=== PATIENT | male | born 1990 | race American Indian/Alaskan Native ===

== ENCOUNTER 2024-12-25 18:02 | Emergency (ER) | payer MEDICAID, SELFPAY ==
[2024-12-25 18:03] VITALS: BMI 42.2
[2024-12-25 19:17] VITALS: BP 152/84; PULSE 74; RESP 18; TEMP 37.1; O2SAT 98
--- NOTE | 2024-12-25 19:22 | XR_ITS ---
Examination: PA lateral chest 2 views TECHNIQUE: Upright PA and lateral chest 2 views Exam date and time: December 25, 2024 at 1942 hours INDICATIONS: Chest pain radiating to left arm today FINDINGS: Normal heart size. Lungs are clear. Chronic wedging T12 vertebral body IMPRESSION: No active disease
--- NOTE | 2024-12-25 19:22 | EKG_ITS ---
[facility] Test Date: 2024-12-25 Pat Name: HEIDI MELENDEZ Department: Room: - Gender: Male [employer] Aligner: : 1990 Requested By: Edgardo Ramos Order Number: [id number] Reading MD: Edgardo Ramos Measurements Intervals Gordon Rate: 71 P: 47 WI: 170 QRS: 71 QRSD: 89 T: 48 QT: 356 QTc: 387 Interpretive Statements SINUS RHYTHM NONSPECIFIC ST ELEVATION [0.05+ mV ST ELEVATION] No previous ECG available for comparison /store/S0/[id number].pdf
--- NOTE | 2024-12-25 19:23 | PD.EDRME ---
Rapid Medical Screening Exam RME Arrival date/time: 12/25/24 18:02 34 year old male present to ED for c/o chest pain today I have greeted and performed a focused initial assessment of this patient. A comprehensive ED assessment and evaluation of the patient, analysis of all test results, and completion of the medical decision making process will be conducted by additional ED providers. Chief Complaint: Chest Pain Time Seen by Provider: 12/25/24 19:19 Vital signs: Vital Signs Temperature 98.8 F 12/25/24 19:17 Pulse Rate 74 12/25/24 19:17 Respiratory Rate 18 12/25/24 19:17 Blood Pressure 152/84 H 12/25/24 19:17 Pulse Oximetry (%) 98 12/25/24 19:17 Oxygen Delivery Method Room Air 12/25/24 19:17
[2024-12-25 20:34] LABS: Basophils # (Auto) 0.1 Thou/mm3 (0.0-0.2); Basophils % (Auto) 1 % (0-2.5); Eosinophils # (Auto) 0.4 Thou/mm3 (0.0-0.5); Eosinophils % (Auto) 4 % (0-10); Hematocrit 44.8 % (41.0-53.0); Hemoglobin 15.9 g/dL (13.5-16.0); Immature Granulocytes % (Auto) 1 % (0-0); Lymphocytes # (Auto) 3.2 Thou/mm3 (1.0-4.8); Lymphocytes % (Auto) 33 % (10-50); Mean Corpuscular HGB Conc 35.5 g/dl (31.0-37.0); Mean Corpuscular Hemoglobin 29.8 pg (25.0-35.0); Mean Corpuscular Volume 84 fL (80-100); Monocytes # (Auto) 0.9 Thou/mm3 (0.0-0.8); Monocytes % (Auto) 9 % (0-12); Neutrophils # (Auto) 5.2 Thou/mm3 (1.8-7.7); Neutrophils % (Auto) 53 % (37-80); Nucleated Red Blood Cell % 0 /100 WBC (0); Platelet Count 192 Thou/mm3 (140-440); RDW Standard Deviation 35.2 fL (35.1-43.9); Red Blood Count 5.34 Miln/mm3 (4.50-5.90); White Blood Count 9.8 Thou/mm3 (3.8-10.6)
[2024-12-25 20:49] LABS: B-Type Natriuretic Peptide < 20 pg/mL (0-100)
[2024-12-25 20:51] LABS: Alanine Aminotransferase 42 U/L (10-49); Albumin/Globulin Ratio 1.7 (1.2-2.2); Alkaline Phosphatase 86 U/L (46-116); Anion Gap 9 (7-16); Aspartate Amino Transferase 36 U/L (0-34); BUN/Creatinine Ratio 17 Ratio (12-20); Bilirubin,Total 0.3 mg/dL (0.3-1.2); Blood Urea Nitrogen 15 mg/dL (9-23); Carbon Dioxide 24.7 mMol/L (20.0-31.0); Chloride 107 mMol/L (98-107); Creatinine (Component) 0.9 mg/dL (0.6-1.3); Estimated Creatinine Clearance 101.1 mL/min (>60); Glucose 93 mg/dL (74-106); Lipase 49 U/L (12-53); Osmolality,Calculated 282 (275-295); Potassium 4.2 mMol/L (3.4-5.1); Sodium 141 mMol/L (136-145); Troponin I 0.032 ng/mL (0.0-0.045); eGFR > 60 See Note
[2024-12-25 23:37] VITALS: BP 148/86; PULSE 75; RESP 18; TEMP 36.9; O2SAT 98
[2024-12-26 00:13] LABS: Troponin I < 0.020 ng/mL (0.0-0.045)
[2024-12-26] MEDS: KETOROLAC INJ 60 MG/2 ML VIAL 30 MG IM (00:27)
--- NOTE | 2024-12-26 00:31 | PD.EDCHEST ---
ED Chest Pain RME/HPI General Chief Complaint: Chest Pain Stated Complaint: LEFT SIDE CHEST PAIN RADIATING TO LEFT ARM SINCE Y Time Seen by Provider: 12/25/24 19:19 Arrival date/time: 12/25/24 18:02 34 year old male present to emergency room with c/o of intermittent chest pain for 2 days, last episode this morning. pt recently stop smoking for 1 week. pt denies any illicit drug/alcohol abuse LOCATION: chest radiated to arm SEVERITY: Symptoms are described as being severe with limitations on activities of daily living CONTEXT: The patient is unable to identify any inciting events. DURATION/TIMING: The symptoms started approximately 2 days ago ASSOCIATED SYMPTOMS: The patient is unable to identify any other associated symptoms. MODIFYING FACTORS: The patient is unable to identify any alleviating or aggravating symptoms. PERTINENT ROS: no fevers, no cough, no pleuritic pain, no ripping or tearing sensations, denies any lower extremity edema and no unilateral swelling, no nausea,vomiting, diarrhea, no dizziness/headache no rash no loc/syncope episode no abd/back pain REVIEW OF SYSTEMS: See History of Present Illness - with the exception of those mentioned in the history of present illness, all other systems reviewed and reported as negative GENERAL: In general the patient is awake, interactive, in an emergency department gurney. HEAD/EYES/EARS/NOSE/THROAT: normo-cephalic, atraumatic, mucus membranes are moist, anicteric, palpebral conjunctiva is pink, trachea is midline. CARDIOVASCULAR: regular rate and regular rhythm, no murmurs, heart sounds are not distant, strong pulses in all four extremities that are equal and symmetric bilateral upper and lower extremities, normal capillary refill. CHEST/PULMONARY: normal chest rise and fall, good air movement, clear to auscultation bilaterally, normal inspiratory to expiratory ratios without evidence of respiratory distress. NECK: No midline/Paraspinal tenderness, no step off ROM/Strenght intact No Kernig and bruzinski sign. No trauma ABDOMEN: soft, not tender, no masses appreciated BACK: normal range of motion without pain. NEUROLOGICAL: cranio-facial features are symmetric, moves all four extremities equally without obvious limitations or weakness. EXTREMITY: no tenderness to palpation over the long bones or large joints of the bilateral upper and lower extremities, no joint swelling, no joint erythema, no signs of trauma, no unilateral leg swelling and no peripheral edema. SKIN: warm, dry, well-perfused, no jaundice, no rash, no telangiectasias or petechia. PSYCH: calm, cooperative, no evidence of psychosis or agitation RME / HPI RME / HPI narrative: 12/25/24 18:02 34 year old male present to ED for c/o chest pain today I have greeted and performed a focused initial assessment of this patient. A comprehensive ED assessment and evaluation of the patient, analysis of all test results, and completion of the medical decision making process will be conducted by additional ED providers. Related Data Previous Rx's ?Medication ?Instructions ?Recorded albuterol sulfate 90 mcg/actuation 2 puff inhalation Q4H PRN 05/12/18 aerosol inhaler (ProAir HFA) shortness of breath or wheezing #8.5 grams ibuprofen 800 mg tablet 800 mg PO TID PRN pain #20 tabs 05/24/18 Allergies Allergy/AdvReac Type Severity Reaction Status Date / Time clindamycin Allergy Severe SWELLING Verified 12/25/24 18:05 OF FACE diphenhydramine Allergy Mild RASH Verified 12/25/24 18:05 Course Quality Measures none Orders Category Date Time Status EKG (ED ONLY) *Do not use* NOW Care 12/25/24 19:22 Completed EKG (ED Only) Stat Exams 12/25/24 19:22 Draft XR chest 2V Stat Exams 12/25/24 19:22 Completed B-Type Natriuretic Peptide Stat Lab 12/25/24 20:18 Completed CBC Stat Lab 12/25/24 20:18 Completed Comprehensive Metabolic Panel Stat Lab 12/25/24 20:18 Completed Lipase Stat Lab 12/25/24 20:18 Completed Magnesium Stat Lab 12/25/24 20:18 Completed Troponin I Stat Lab 12/25/24 20:18 Completed Troponin I Stat Lab 12/25/24 23:40 Completed Ketorolac Inj [Toradol Inj] Med 12/26/24 00:03 Discontinued 30 mg IM X1 ONE Vital Signs Vital signs: Vital Signs Temperature 98.8 F 12/25/24 19:17 Pulse Rate 74 12/25/24 19:17 Respiratory Rate 18 12/25/24 19:17 Blood Pressure 152/84 H 12/25/24 19:17 Pulse Oximetry (%) 98 12/25/24 19:17 Oxygen Delivery Method Room Air 12/25/24 19:17 Chest Pain MDM Narrative MDM Narrative:: Given History, Exam, and Workup I have low suspicion for ACS, Pneumothorax, Bacterial Pneumonia, Pulmonary Embolus, Tamponade, Aortic Dissection or other emergent problem as a cause for this presentation.? Last Stress Test:? never Last Heart Catheterization:? never HEART Score: 1-2 ? Patient data External records reviewed:: [facility] previous records Clinical information provided by:: patient Social determinants that could affect healthcare access:: none Patient has the following chronic illnesses:: t12 fx How is presenting disease/condition affected by chronic disease/condition?: uneffected by Evaluation data The following diagnostics were reviewed and interpreted by me:: lab results, radiology exam(s) and EKG tracing(s) Lab and/or radiology exams considered but not ordered:: n/a Interpretation Summary: Normal heart size. Lungs are clear. Chronic wedging T12 vertebral body IMPRESSION: No active disease CBC: wnl CMP wnl tropx 2 wnl Medications / Prescriptions Medications or Prescriptions considered but not ordered:: n/a Medication administrations:: Medication Administration History Discontinued Medications Ketorolac Tromethamine (Ketorolac Inj 60 Mg/2 Ml Vial) 30 mg IM X1 ONE Stop: 12/26/24 00:04 Last Admin: 12/26/24 00:27 Dose: 30 mg Documented By: KF as stated above Consultations Consultation(s) initiated? (list below): No Diagnosis Chest Pain Differential Diagnosis: fracture of rib, pneumothorax, stable angina, unstable angina pectoris, atypical chest pain, st elevation myocardial infarction, costochondritis, chest pain and biliary colic Most likely diagnosis given after review of the tests above:: chest pain Admission Indicated Admission indicated?: not indicated Admission Request Was there a request for admission?: No Disposition Plan Disposition Plan: Discharge Discharge Attestation Discharge Attestation: The patient and all family members were given an opportunity to ask questions and understood the discharge instructions. Discharge instructions specifically effects, indications for sooner follow up or return to the emergency department, and the expected course of current diagnosis. Patient condition: Stable Discharge Plan Plan Patient Disposition: HOME (Self Care) Health Concerns: Follow with PMD as directed Take tylenol or motrin as need Return to ED if sx worsen Prescriptions/Referrals Prescriptions/Med Rec: No Action albuterol sulfate [ProAir HFA] 90 mcg/actuation HFA aerosol inhaler 2 puff INH Q4H PRN (Reason: shortness of breath or wheezing) Qty: 8.5 0RF ibuprofen 800 mg tablet 800 mg PO TID PRN (Reason: pain) Qty: 20 0RF Referrals: Brandon Goodman PA-C [Primary Care Provider] - In 1 week Problem List Clinical Impression: Chest pain Patient/Caregiver Discharge Instructions Education Materials: ED Chest Pain, Uncertain Cause Print Language: Tanzanian Stand Alone Forms: Abigail Award Info., Patient Portal Info Letter
== END 2024-12-26 00:35 | disposition home or self-care (01) ==
PROVIDERS: Physician Assistant; Emergency Provider Emergency Medicine; PCP Physician Assistant
DX: R07.89 Other chest pain (principal); R94.31 Abnormal electrocardiogram [ECG] [EKG]
CPT/HCPCS: 36415; 71046; 80053; 83690; 83735; 83880; 84484; 85025; 93005; 96372; 99283; J1885